=== PATIENT | female | born 1960 | race Caucasian/White ===

== ENCOUNTER → 2017-08-07 12:34 | Outpatient (CLI) | payer MEDICARE, OTHER ==
[2015-08-20 08:36] VITALS: BMI 36.8
[~2017-08-07 12:34] MED LIST: COMBIVENT RESPIM4 GM INH; COZAAR50 MG PO; IPRAT-ALBUT 0.5-3 ML UPD; ISOSORBIDE MONO30 M1 PO; NORVASC10 MG PO
== END | disposition home or self-care (01) ==
LOC: D.CT 12:34
DX: R93.8 Abnormal findings on diagnostic imaging of other specified body structures (principal)

== ENCOUNTER → 2017-10-12 06:26 | Outpatient (CLI) | payer MEDICARE, OTHER ==
[~2017-10-12] VITALS: Ht 165.1 cm; Wt 94.5 kg
--- NOTE | ~2017-10-12 | HEMODYNAMI ---
PATIENT:PRABHJOT RICE MEDICAL RECORD: [id number] : 60 LOCATION:[facility] ADMISSION DATE: 10/12/17 Generatedon:10/12/20179:30 Patient name: PRABHJOT RICE Patient #: [id number] SSN: DO B: 1960 Date of study: 10/12/2017 Page: Of Hemodynamic Procedure Report Patient Data Patient Demographics Procedure consent was obtained First Name: PRABHJOT Gender: Female Last Name: KRYSTAL : 1960 [facility] Initial: JEAN PIERRE Age: 57 year(s) Patient #: [id number] Race: Additional ID: [id number] Contact details [address]: [address] [place] [address] State: [place] City: [place] Zip code: [address] Past Medical History Allergies Allergen Reaction Date Comments Reported Sulfa drugs 08/20/2015 Other allergy 08/20/2015 Levaquin, Chantix Other allergy 10/12/2017 CHANTIX, LEVAQUIN, SULFA Admission Admission Data Admission Date: 10/12/2017 Admission Time: 6:26 Lab Results Lab Result Date: 10/12/2017 Lab Result Time: 0:00 Biochemistry Name Units Result Min Max BUN mg/dl 15 --(--*-)-- 7 18 Creatinine mg/dl 1 --(--*-)-- 0.6 1.3 CBC Name Units Result Min Max Hemoglobin g/dl 12.9 -*(----)-- 13.5 17.5 Procedure Procedure Types Cath Procedure Diagnostic Procedure LHC LHC w/Coronaries FFR/IVUS Intra-Coronary IVUS Initial Sedation Charges Moderate Sedation up to 30 minutes Peripheral Cath Diagnostic Procedure Cath Peripheral Yzppr-Zgxpdca-Aad-Off Procedure Description Procedure Date Procedure Date: 10/12/2017 Procedure Start Time: 8:59 Procedure End Time: 9:29 Procedure Staff Name Function Reza De La Vega MD Performing Physician Emily Crook RT Monitor Bobby Tsai RT Scrub Riley Bowles RN Nurse Channing Reis RT Air And Water Filler Procedure Data Cath Procedure Fluoroscopy Diagnostic fluoroscopy Total fluoroscopy Time: 4.1 time: 4.1 min min Diagnostic fluoroscopy Total fluoroscopy dose: 737 dose: 737 mGy mGy Contrast Material Contrast Material Type Amount (ml) Isovue 370 137 Entry Location Entry Primary Successful Side Size Upsize Upsize Entry Closure Succes sful Closure Location (Fr) 1 (Fr) 2 (Fr) Remarks Device Remarks Femoral Right 5 Fr 6 Fr Exoseal artery Short Estimated blood loss: 5 ml Diagnostic catheters Device Type Used For End Catheter Placement MULTIPACK JL 4.0 5Fr Procedure catheter MULTIPACK 3DRC 5Fr Procedure catheter MULTIPACK Pigtail 5 Fr Procedure catheter Procedure Complications No complications Procedure Medications Medication Administration Route Dosage Oxygen etCO2 Nasal cannula 2 l/min Heparin Flush Bag added to field 2 bags (1000units/500ml NS) 0.9% NaCl I.V. 100 ml/hr Fentanyl I.V. 50 mcg Versed I.V. 1 mg Fentanyl I.V. 50 mcg Versed I.V. 1 mg Fentanyl I.V. 50 mcg Fentanyl I.V. 50 mcg Versed I.V. 1 mg Heparin Bolus I.V. 5000 units Hemodynamics Rest HGB: 12.9 (g/dl) Heart Rate: 88 (bpm) Pressure Samples Time Site Value (mmHg) Purpose Heart Use Rate(bpm) 9:07 LV 128/-3,9 Snapshot 101 9:07 AO 125/80(101) Pullback 100 9:07 LV 126/-4,11 Pullback 100 Gradients Valve Time Site 1 Site 2 Mean SEP/DFP Peak To Heart Use (mmHg) (sec/min) Peak Rate (mmHg) (bpm) Aortic 9:07 LV AO 9 21 1 100 126/-4,11 125/80(101) Calculations Valve P-P Mean Valve Index Valve Source Name Gradient Area Flow (cm2) Aortic 1 9 1 9 Snapshots Pre Cath Intra NCS Post Cath Vital Signs Time Heart Resp SPO2 etCO2 NIBP (mmHg) Rhythm Pain Sedation Rate (ipm) (%) (mmHg) Status Level (bpm) 8:45:09 85 22 96 33.1 157/98(137) NSR 0 (11) 10(A) , No pain 8:49:58 93 21 97 27.8 153/104(127) NSR 0 (11) 10(A) , No pain 8:54:44 92 16 96 30.1 143/98(114) NSR 0 (11) 9(A) , No pain 8:59:31 97 17 95 29.3 146/86(110) NSR 0 (11) 9(A) , No pain 9:04:14 97 16 90 0 128/91(114) NSR 0 (11) 9(A) , No pain 9:08:57 101 17 97 30.1 115/85(106) NSR 0 (11) 9(A) , No pain 9:14:14 103 16 99 42.1 128/94(109) NSR 0 (11) 9(A) , No pain 9:18:59 101 17 97 35.3 131/78(98) NSR 0 (11) 9(A) , No pain 9:23:41 102 16 97 36.8 129/89(107) NSR 0 (11) 9(A) , No pain 9:28:24 95 21 99 32.3 136/92(107) NSR 0 (11) 9(A) , No pain Medications Time Medication Route Dose Verified Delivered Reason Notes Effectiveness by by 8:37:27 Oxygen etCO2 2 Reza Riley Per physician Nasal l/min Ceferino Bowles RN cannula 8:37:36 Heparin Flush added 2 Reza Riley used for Bag to bags Ceferino Bowles tariff expert (1000units/500ml field NS) 8:37:44 0.9% NaCl I.V. 100 Reza Riley Per physician ml/hr Ceferino Bowles RN 8:50:04 Fentanyl I.V. 50 Reza Riley for sedation mcg Ceferino Bowles RN 8:50:12 Versed I.V. 1 mg Reza Riley for sedation Ceferino Bowles RN 8:58:33 Fentanyl I.V. 50 Reza Riley for sedation mcg Ceferino Bowles RN 8:58:36 Versed I.V. 1 mg Reza Riley for sedation Ceferino Bowles RN 9:00:34 Fentanyl I.V. 50 Reza Riley for sedation mcg Ceferino Bowles RN 9:03:24 Fentanyl I.V. 50 Reza Riley for sedation mcg Ceferino Bowles RN 9:15:26 Versed I.V. 1 mg Reza Riley for sedation Ceferino Bowles RN 9:15:33 Heparin Bolus I.V. 5000 Reza Lin for units Ceferino Bowles RN anticoagulation Procedure Log Time Note 8:27:13 Channing Reis RT(R) sent for patient. Start room use. 8:36:52 Signed procedure consent form obtained from patient. 8:37:15 Time tracking: Regular hours (M-F 7:00 - 5:00) 8:37:18 Plan of Care:Hemodynamics will remain stable., Cardiac rhythm will remain stable., Comfort level will be maintained., Respiratory function will remain adequate., Patient/ family verbilizes understanding of procedure., Procedure tolerated without complication., Recovers from procedure without complications.. 8:37:27 Oxygen 2 l/min etCO2 Nasal cannula was administered by Riley Bowles RN; Per physician; 8:37:36 Heparin Flush Bag (1000units/500ml NS) 2 bags added to field was administered by Riley Bowles RN; used for procedure; 8:37:44 0.9% NaCl 100 ml/hr I.V. was administered by Riley Bowles RN; Per physician; 8:38:32 Lab Result : BUN 15 mg/dl 8:38:32 Lab Result : Hemoglobin 12.9 g/dl 8:38:32 Lab Result : Creatinine 1 mg/dl 8:39:17 Patient allergic to Other allergyCHANTIX, LEVAQUIN, SULFA 8:39:25 Patient received from Pre/Post Procedure Room to CCL 1 Alert and oriented. Tansferred to table in Supine position. 8:39:26 Warm blankets applied, and otilio hugger turned on for patient comfort. 8:39:26 Correct patient and procedure confirmed by team. 8:39:27 ECG and BP/O2 sat monitors applied to patient. 8:44:08 Vital chart was started 8:47:40 Baseline sample Acquired. 8:47:46 Rhythm: sinus rhythm 8:47:47 Full Disclosure recording started 8:47:53 H&P Date Dictated: 10/12/2017 Within 30 days and on chart., H&P Addendum completed by physician on day of procedure. (MUST COMPLETE FOR ALL OUTPATIENTS). 8:47:54 Pre-procedure instructions explained to patient. 8:47:54 Pre-op teaching completed and patient verbalized understanding. 8:47:56 Family in patients room. 8:47:57 Patient NPO since Midnight. 8:48:01 Is patient on blood thinner?No 8:48:03 Patient diabetic? No. 8:48:07 Previous problem with sedation/anesthesia? No ? 8:48:08 Snore? Yes 8:48:09 Sleep apnea? Yes 8:48:10 Deviated septum? No 8:48:10 Opens mouth fully? Yes 8:48:11 Sticks out tongue? No 8:48:14 Airway obstruction? Yes COPD 8:48:20 Dentures? Yes IN TIGHT 8:49:12 Pre procedure: right dorsailis pedis pulse 2+ Normal; easily identifiable; not easily obliterated 8:49:16 Patient pain scale 0/10 ?. 8:49:25 IV patent on arrival in left wrist with 0.9% NaCl at O. 8:49:29 Lab results completed and on chart. 8:49:32 Right groin area was prepped with chlora-prep and draped in sterile fashion 8:49:33 Alarms reviewed by R. N. 8:49:33 Sharps counted by scrub and verified by R.N. 8:49:35 --------ALL STOP TIME OUT------ 8:49:35 Final Timeout: patient, procedure, and site verified with staff and physician. All members of the team are in agreement. 8:49:37 Right groin site verified by team. 8:49:40 Physical assessment completed. ASA score P 2 - A patient with mild systemic disease as per Reza De La Vega MD. 8:49:43 Sedation plan: IV Moderate Sedation Medication:Versed, Fentanyl 8:49:49 Use device set Femoral Dx 8:49:50 ACIST Syringe (10326) opened to sterile field. 8:49:50 Bag Decanter () opened to sterile field. 8:49:51 ACIST Hand Control (20058) opened to sterile field. 8:49:52 ACIST Manifold (42011) opened to sterile field. 8:49:52 Tegaderm 4 x 4 (1626W) opened to sterile field. 8:49:55 Medline Cath Pack ([id number]) opened to sterile field. 8:49:55 DIAGNOSTIC WIRE .035 260cm J wire (774129) opened to sterile field. 8:49:57 DIAGNOSTIC Multipack 5Fr catheter set (NI6407) opened to sterile field. 8:49:58 SHEATH Prelude 5Fr 0.035 (UVV-7E-35-035) opened to sterile field. 8:50:04 Fentanyl 50 mcg I.V. was administered by Riley Bowles RN; for sedation; 8:50:12 Versed 1 mg I.V. was administered by Riley Bowles RN; for sedation; 8:58:33 Fentanyl 50 mcg I.V. was administered by Riley Bowles RN; for sedation; 8:58:36 Versed 1 mg I.V. was administered by Riley Bowles RN; for sedation; 8:59:02 Procedure started. 8:59:19 Zero performed for pressure channel P1 8:59:29 Zero performed for pressure channel P1 8:59:41 Local anesthetic to right femoral artery with Lidocaine 2% by Reza De La Vega MD.INITIAL ACCESS ONLY 9:00:34 Fentanyl 50 mcg I.V. was administered by Riley Bowles RN; for sedation; 9:00:37 A 5 Fr sheath was inserted into the Right Femoral artery 9:02:12 A MULTIPACK JL 4.0 5Fr catheter was advanced over the wire and used for Procedure. 9:03:24 Fentanyl 50 mcg I.V. was administered by Riley Bowles RN; for sedation; 9:03:51 LCA angiography performed. 9:04:32 Catheter exchanged over wire. 9:04:38 A MULTIPACK 3DRC 5Fr catheter was advanced over the wire and used for Procedure. 9:05:15 RCA angiography performed. 9:05:18 Catheter exchanged over wire. 9:05:42 A MULTIPACK Pigtail 5 Fr catheter was advanced over the wire and used for Procedure. 9:05:58 Injector settings: Ml/sec: 10, Volume: 20, 9:06:01 LV gram done using NUGENT 9:07:14 LV hemodynamics recorded. 9:07:49 EF : 55 % 9:07:58 PIGTAIL PULLED DOWN FOR AFRO 9:09:20 Abdominal Aortagram was performed. 9:09:30 Left leg runoff performed. 9:10:04 Right leg runoff performed. 9:10:12 Catheter removed. 9:10:47 TUBING High Pressure Extension Tubing (Ceferino) (VQ9861P) opened to sterile field. 9:10:47 BMW 300cm [place] 2 J wire ([id number]) opened to sterile field. 9:10:49 SHEATH 6FR Ophiem (AHO926) opened to sterile field. 9:10:50 INFLATOR Merit BasixCompak (FO4921) opened to sterile field. 9:10:51 GUIDE 6FR XBLAD 3.5 catheter ([id number]) opened to sterile field. 9:11:00 Sheath upsized to a 6 Fr Short. 9:11:17 [place] IVUS Catheter (82654K) opened to sterile field. 9:15:08 6 Fr XBLAD 3.5 guide catheter was inserted over the wire 9:15:26 Versed 1 mg I.V. was administered by Riley Bowles RN; for sedation; 9:15:33 Heparin Bolus 5000 units I.V. was administered by iRley Bowles RN; for anticoagulation; 9:16:13 BMW 300 wire advanced. 9:17:55 Wire advanced across lesion. 9:21:23 IVUS catheter advanced over wire. 9:21:25 IVUS pass to LAD lesion performed. 9:21:26 IVUS catheter removed over wire. 9:23:25 EXOSEAL 5Fr (EX500) opened to sterile field. 9:23:41 Wire removed. 9:23:41 Guide catheter removed. 9:23:52 Sheath removed intact; hemostasis achieved with Exoseal to the Right Femoral artery. 9:25:04 Procedure ended.(Physican Out) 9:25:48 Fluoroscopy time 04.10 minutes. 9::52 Fluoroscopy dose: 737 mGy 9:25:52 Flurop Dose total: 737 9:25:55 Contrast amount:Isovue 370 137ml. 9:26:04 Sharps counted by scrub and verified by R.N. 9:26:05 Insertion/operative site no bleeding no hematoma. 9:26:09 Post-op/insertion site Right Femoral artery dressed using a 4 x 4 and Tegaderm. 9:26:13 Post right femoral artery:stable, soft, clean and dry 9:26:18 Post procedure: right dorsailis pedis pulse 2+ Normal; easily identifiable; not easily obliterated. 9:26:20 Post-procedure physical assessment completed. ASA score P 2 - A patient with mild systemic disease as per Reza De La Vega MD. 9:26:26 Post procedure rhythm: sinus rhythm 9::29 Estimated blood loss: 5 ml 9:26:30 Post procedure instruction explained to patient.Patient verbalizes understanding. 9:26:31 Patient needs reinforcement of post procedure teaching. 9:26:57 Procedure type changed to Cath procedure, Diagnostic procedure, LHC, LHC w/Coronaries, FFR/IVUS, Intra-Coronary IVUS Initial, Sedation Charges, Moderate Sedation up to 30 minutes, Peripheral Cath Diagnostic Procedure, Cath Peripheral, Emtpi-Mrsciux-Sfq-Off 9:29:12 Procedure and supply charges have been captured, reviewed, submitted and are correct. 9:29:19 Procedure Complication : No complications 9:29:22 Vital chart was stopped 9:29:22 See physician's report for complete and final results. 9:29:24 Report given to Pre/Post Procedure Room. 9:29:27 Patient transfered to Pre/Post Procedure Room with Bed. 9:29:30 Procedure ended. 9:29:30 Full Disclosure recording stopped 9:29:36 End room use (Document Last) Device Usage Item Name Manufacture Quantity Catalog Number Hospital Part Current M inimal Lot# / Charge Number Stock Stock Serial# Code ACIST Syringe Acist 1 94300 676045 421006 936351 2 0 (86763) [employer] Inc Bag Decanter Microtek 1 2001S 291815 94250 339072 5 (2001S) Medical Inc. ACIST Hand Acist 1 72264 916981 318597 852497 5 Control (98155) Medical Systems Inc ACIST Manifold Acist 1 53476 919267 832752 292700 5 (24883) Medical Systems Inc Tegaderm 4 x 4 3M 1 1626W 813730 034633 929289 5 (1626W) Medline Cath Cardinal 1 [id number] 108962 10707 277610 5 Pack Health ([id number]) DIAGNOSTIC WIRE St Ted 1 683909 342771 950934 386430 3 0 .035 260cm J wire (932607) DIAGNOSTIC Cardinal 1 XV0223 255930 57500 929810 3 0 Multipack 5Fr Health catheter set (QR0516) SHEATH Prelude Merit 1 EGA-6F-51-035 662022 789171 780972 5 5Fr 0.035 Medical (SMG-0C-08-035) MULTIPACK JL Cardinal 1 954157 5 4.0 5Fr Health catheter MULTIPACK 3DRC Cardinal 1 489937 5 5Fr catheter Health MULTIPACK Cardinal 1 517990 5 Pigtail 5 Fr Health catheter TUBING High Merit 1 [id number] 462692 88599 034982 1 0 Pressure Medical Extension Tubing (De La Vega) (QA8782Q) BMW 300cm Sagastume 1 [id number] 658372 992101 443443 5 [place] 2 J Vascular wire ([id number]) SHEATH 6FR Terumo 1 GDG388 197996 469289 290752 4 0 Ophiem (VUO770) INFLATOR Merit Merit 1 MJ5067 544650 094550 124954 1 5 BasixCompaSADAR 3D Medical (EP3271) GUIDE 6FR XBLAD Cardinal 1 [id number] 690281 974445 668205 1 0 3.5 catheter Health (85888120) [facility] 1 51738F 359617 224389 939724 8 [place] IVUS Catheter (84488T) EXOSEAL 5Fr Cardinal 1 EX500 788474 519089 618439 1 0 (EX500) Health Signature Audit [place] Stage Time Signature Unsigned Intra-Procedure 10/12/2017 Emily Crook 9:30:15 AM RT(R) Signatures Monitor : Emily Crook Signature : RT Date : Time : [facility] [address] [place] [address]
[2017-10-12 07:12] VITALS: BP 145/96; Ht 165.1 cm; Wt 94.5 kg
[2017-10-12 07:40] LABS: BASOPHILS 0.2 % (0-2); EOSINOPHILS 5.6 % (0-7); HEMATOCRIT 39.4 % (36.0-48.0); HEMOGLOBIN 12.9 g/dL (12-16); IMMATURE GRANULOCYTES 0.3 % (0-5); LYMPHOCYTES 22.9 % (15-50); MCHC 32.7 g/dL (31.0-37.0); MCV 85.7 fL (80.0-100.0); PLATELET COUNT 187 10x3/uL (130-400); RDW 14.8 % (11.5-14.5); WBC 5.8 10x3/uL (4.8-10.8)
[2017-10-12 08:06] LABS: ANION GAP 11.3 mmol/L (8-16); CALCIUM 9.9 mg/dL (8.5-10.1); CARBON DIOXIDE 26.5 mmol/L (21.0-32.0); POTASSIUM - SERUM 3.8 mmol/L (3.5-5.1)
== END | disposition home or self-care (01) ==
LOC: D.CATH 06:26
PROVIDERS: Internal Medicine Cardiovascular Disease
DX: I20.9 Angina pectoris, unspecified (principal); I10 Essential (primary) hypertension; Z82.49 Family history of ischemic heart disease and other diseases of the circulatory system; Z01.812 Encounter for preprocedural laboratory examination

== ENCOUNTER → 2018-04-20 10:50 | Outpatient (CLI) | payer MEDICARE, OTHER ==
[2017-10-12 07:12] VITALS: BMI 34.6
== END | disposition home or self-care (01) ==
LOC: D.CT 10:50
DX: R93.89 Abnormal findings on diagnostic imaging of other specified body structures (principal)

== ENCOUNTER → 2019-01-07 09:13 | Outpatient (CLI) | payer MEDICARE, OTHER ==
[2017-10-12 07:12] VITALS: BMI 34.6
== END | disposition home or self-care (01) ==
LOC: D.CT 09:13
PROVIDERS: ATTEND Internal Medicine Pulmonary Disease
DX: R91.1 Solitary pulmonary nodule (principal)

== ENCOUNTER 2019-03-06 06:24 | Outpatient (CLI) | payer MEDICARE, OTHER ==
[~2019-03-06] VITALS: Ht 165.1 cm; Wt 99.5 kg
[2019-03-06 06:37] LABS: BASOPHILS 0.3 % (0-2); EOSINOPHILS 9.2 % (0-7); HEMATOCRIT 39.6 % (36.0-48.0); HEMOGLOBIN 12.4 g/dL (12-16); IMMATURE GRANULOCYTES 0.2 % (0-5); LYMPHOCYTES 26.8 % (15-50); MCH 25.3 pg (26.0-34.0); MCHC 31.3 g/dL (31.0-37.0); MCV 80.7 fL (80.0-100.0); MEAN PLATELET VOLUME 8.7 fL (7.4-10.4); MONOCYTES 10.2 % (2-11); NEUTROPHILS 53.3 % (40-80); RBC 4.91 10x6/uL (4.00-5.40); RDW 16.2 % (11.5-14.5); WBC 6.6 10x3/uL (4.8-10.8)
[2019-03-06 06:41] LABS: PLATELET COUNT 260 10x3/uL (130-400)
[2019-03-06] MEDS ORDERED: GABAPENTIN100 MG PO (06:55)
[2019-03-06] MEDS ORDERED: CYCLOBENZAPRINE10 MG PO (06:55)
[2019-03-06] MEDS ORDERED: SINGULAIR10 MG PO (06:56)
[2019-03-06] MEDS ORDERED: ZOFRAN ODT4 MG/UDTAB PO (06:56)
[2019-03-06] MEDS ORDERED: PHENERGAN25 M1 PO (06:57)
[2019-03-06] MEDS ORDERED: CARAFATE1 G (06:57)
[2019-03-06 07:05] VITALS: BP 125/77; Ht 165.1 cm; Wt 99.5 kg
[2019-03-06 07:57] LABS: APTT 23.2 SECONDS (22.8-39.4); INR 0.99 (0.85-1.17); PROTIME 12.6 SECONDS (11.6-15.0)
[2019-03-07 17:08] LABS: AFB SPECIMEN PROCESSING Concentration (())
[2019-03-08 14:09] LABS: FUNGUS STAIN Final report (())
[2019-03-18 11:12] LABS: FUNGUS CULTURE RESULT 1 Candida albicans (())
[2019-04-03 15:09] LABS: FUNGUS MYCOLOGY CULTURE Final report (())
[2019-04-26 12:09] LABS: ACID FAST CULTURE Negative (()); ACID FAST SMEAR Negative (())
== END 2019-03-06 11:49 | disposition home or self-care (01) ==
LOC: D.OPS 06:24
PROVIDERS: ATTEND Internal Medicine Pulmonary Disease
DX: J98.11 Atelectasis (principal); R05 Cough

== ENCOUNTER → 2019-06-13 08:14 | Outpatient (CLI) | payer MEDICARE, OTHER ==
[2019-03-06 07:05] VITALS: BMI 36.5
[~2019-06-13 08:14] MED LIST changes: +CARAFATE1 G; +CYCLOBENZAPRINE10 MG PO; +GABAPENTIN100 MG PO; +PHENERGAN25 M1 PO; +SINGULAIR10 MG PO; +ZOFRAN ODT4 MG/UDTAB PO
== END | disposition home or self-care (01) ==
LOC: D.CT 08:14
PROVIDERS: ATTEND Internal Medicine Pulmonary Disease
DX: R91.1 Solitary pulmonary nodule (principal)

== ENCOUNTER → 2019-06-25 09:13 | Outpatient (CLI) | payer MEDICARE, OTHER ==
[2019-03-06 07:05] VITALS: BMI 36.5
--- NOTE | ~2019-06-25 | EC ---
PATIENT:PRABHJOT RICE DATE OF SERVICE: 06/25/19 SEX: F MEDICAL RECORD: [id number] DATE OF : 60 [facility] AGE OF PATIENT: 59 ADMISSION DATE: 06/25/19 REFERRING PHYSICIAN: INTERPRETING PHYSICIAN: JONO HAMPTON MD ECHOCARDIOGRAM REPORT ECHO CHARGES 4 ECHO COMPLETE Date: 06/25/19 CLINICAL DIAGNOSIS: DYSPNEA HX COPD/HTN ECHOCARDIOGRAPHIC MEASUREMENTS (adult normal given) AC root (d.<3.7cm) 3.8 cm LV Septum d (<1.2 cm> 1.4 cm Valve Excursion 1.8 cm LV Septum (systole) 1.7 cm Left Atria (s.<4.0cm> 2.8 cm LVPW d(<1.2cm) 1.6 cm RV (d.<2.3cm) 2.9 cm LVPW (sytole) 1.7 cm LV diastole(<5.6CM) 4.5 cm MV E-F(>70mm/sec) cm LV systole 3.6 cm LVOT Diameter 1.9 cm MV exc.(>10mm) 2.2 cm Est.ejection fraction (50-75%) % DOPPLER: LVIT cm/sec A 90.0 cm/sec E 53.0 cm/sec LA cm/sec RVSP 17 mmHg LVOT 85 cm/sec AOP1/2T m/s Asc. Ao 103 cm/sec RVOT 65 cm/sec RA cm/sec PA 93 cm/sec AV Gradient Peak 4.20 mmHg AV Mean 2.37 mmHg AV Area 2.4 cm MV Gradient Peak 2.48 mmHg MV Mean 1.00 mmHg MV Area cm COMMENTS: Rubber Insulator: 2 ALISON CARROLL Bander Hand: 1 Dr. Hampton TAPE# PACS Pericardial Effusion N DATE OF SERVICE: PROCEDURE: Echocardiogram. FINDINGS: 1. Left ventricular chamber size is within normal limits. Left ventricular systolic function is normal. Overall ejection fraction estimated at 55%. 2. Left atrium, right atrium, and right ventricular chamber sizes are within normal limits. 3. Valvular structures have normal structure and motion. ECHOCARDIOGRAM REPORT [id number] PRABHJOT RICE 4. Doppler interrogation reveals only trace tricuspid regurgitation, no other valvular insufficiency or stenosis. Pulmonary systolic pressure is normal estimated at 17 mmHg. 5. No evidence of pericardial effusion or left ventricular thrombus. TRANSINT:[id number] Voice Confirmation ID: [id number] DOCUMENT ID: [id number] JONO HAMPTON MD CC: [id number] DICTATION DATE: 06/25/19 1149 SOLDERER: 06/25/[address] [facility] [address] [place] [id number]
== END | disposition home or self-care (01) ==
LOC: D.ECHO 09:13
PROVIDERS: ATTEND Internal Medicine Pulmonary Disease
DX: R55 Syncope and collapse (principal)

== ENCOUNTER → 2019-07-02 10:18 | Outpatient (CLI) | payer MEDICARE, OTHER ==
[2019-03-06 07:05] VITALS: BMI 36.5
== END | disposition home or self-care (01) ==
LOC: D.RAD 10:00
PROVIDERS: ATTEND Internal Medicine Pulmonary Disease
DX: R13.10 Dysphagia, unspecified (principal)

== ENCOUNTER → 2020-03-03 09:02 | Outpatient (CLI) | payer MEDICARE, OTHER ==
[2019-03-06 07:05] VITALS: BMI 36.5
== END | disposition home or self-care (01) ==
LOC: D.LAB 09:02
PROVIDERS: ATTEND Internal Medicine Pulmonary Disease
DX: Z11.59 Encounter for screening for other viral diseases (principal)

== ENCOUNTER → 2020-03-06 13:11 | Outpatient (CLI) | payer MEDICARE, OTHER ==
[2019-03-06 07:05] VITALS: BMI 36.5
== END | disposition home or self-care (01) ==
LOC: D.RT 13:11
PROVIDERS: ATTEND Internal Medicine Pulmonary Disease
DX: J44.9 Chronic obstructive pulmonary disease, unspecified (principal); R91.1 Solitary pulmonary nodule

== ENCOUNTER → 2020-09-21 08:36 | Outpatient (CLI) | payer MEDICARE, OTHER ==
[2019-03-06 07:05] VITALS: BMI 36.5
== END | disposition home or self-care (01) ==
LOC: D.CT 08:36
PROVIDERS: ATTEND Internal Medicine Pulmonary Disease
DX: R91.1 Solitary pulmonary nodule (principal)